=== PATIENT | male | born 1985 | race Caucasian/White ===

== ENCOUNTER 2019-08-21 13:47 | Emergency (ER) | payer OTHER ==
[~2019-08-21] VITALS: Ht 175.3 cm; Wt 68.0 kg
--- NOTE | ~2019-08-21 | EKG ---
[place] [address] ELECTROCARDIOGRAM REPORT Name: LUZ SANCHEZ Room: [facility].#: [id number] Admission: Attend Phys: Discharge: Date of : 87 Date of Service: 08/21/19 135 Report #: [id number] THIS REPORT FOR: cc: Tera Haley MD ~ THIS REPORT FOR: //name// [facility] ED Test Date: 2019-08-21 Test Time: 13:51:46 Pat Name: LUZ SANCHEZ Department: Room: Gender: M National Sales Consultant: SUKH : 1985 Requested By: Chun Casarez Order Number: [id number] MD: Measurements Intervals [place] Rate: 100 P: 81 MN: 106 QRS: 58 QRSD: 102 T: 45 QT: 335 QTc: 432 Interpretive Statements Sinus tachycardia Probable left atrial enlargement RSR' in V1 or V2, right VCD or RVH No previous ECG available for comparison [email or web address] By: 135 1351 Epiphany Epiphany, /EPI
[2019-08-21 14:26] LABS: ABSOLUTE BASOPHILS 0.1 thou/uL (0.0-0.2); ABSOLUTE EOSINOPHILS 0.1 thou/uL (0.0-0.7); ABSOLUTE LYMPHOCYTES 2.2 thou/uL (0.8-5.3); ABSOLUTE NEUTROPHILS 4.6 thou/uL (1.6-8.1); BASOPHILS 1.1 %; EOSINOPHILS 1.2 %; HEMATOCRIT 46.4 % (42.0-52.0); LYMPHOCYTES 27.2 %; MCH 30.9 pg (26.0-34.0); MCHC 34.4 g/dL (28.0-37.0); MCV 89.8 fL (80.0-100.0); MONOCYTES 12.2 %; MPV 7.4 fl. (7.2-11.1); NUCLEATED RBCS 0 /100WBC; PLATELET COUNT* 320 thou/uL (150-400); POLYS 58.3 %; RBC 5.17 mil/uL (4.50-6.00)
[2019-08-21 14:35] LABS: CALCIUM 9.3 mg/dL (8.5-10.1); POTASSIUM 3.3 mmol/L (3.5-5.1)
[2019-08-21 14:37] LABS: APTT 24.7 Seconds (25.0-31.3); PROTIME 10.2 Seconds (9.20-11.50)
[2019-08-21 14:49] LABS: ALBUMIN 4.9 g/dL (3.4-5.0); CK-MB MASS 0.9 ng/mL (<0.5-3.6); MAGNESIUM 2.1 mg/dL (1.8-2.4); TOTAL BILIRUBIN 0.3 mg/dL (<0.1-1.0); TOTAL PROTEIN 8.5 g/dL (6.4-8.2)
[2019-08-21 15:58] LABS: URINE BILIRUBIN NEGATIVE (Negative); URINE BLOOD NEGATIVE (Negative); URINE CLARITY CLEAR; URINE COLOR STRAW; URINE GLUCOSE-RANDOM NEGATIVE (Negative); URINE KETONES NEGATIVE (Negative); URINE LEUKOCYTES-REFLEX NEGATIVE (Negative); URINE NITRITE-REFLEX NEGATIVE (Negative); URINE PROTEIN NEGATIVE (Negative); URINE UROBILINOGEN 0.2 E.U./dl (0.2-1.0)
[2019-08-21 16:12] LABS: AMP/METHAMP Negative (Negative); BARBITURATES Negative (Negative); BENZODIAZEPINES Negative (Negative); COCAINE Negative (Negative); METHADONE Negative (Negative); OPIATES Negative (Negative); PCP Negative (Negative); THC POSITIVE (Negative)
[2019-08-21 16:40] VITALS: BP 121/70
== END 2019-08-21 16:41 | disposition home or self-care (01) ==
LOC: M.ERS 13:47
PROVIDERS: Family Medicine
DX: F41.9 Anxiety disorder, unspecified (principal)